=== PATIENT | female | born 1980 | race Caucasian/White ===

== ENCOUNTER → 2019-01-28 | Outpatient (CLI) | payer BC ==
[2015-09-12 15:40] VITALS: BMI 25.3
[~2019-01-28] MED LIST: ACET-3143 PO; HYDR2TAB4 PO; IBU600 PO; IBUP800T37 PO; IOPAMIDOL 76% 150 ML INFUS BTL 150 ML ONE; MULT-912 PO; OMEG300C PO; PER PO
--- NOTE | 2019-01-28 17:58 | RADIOLOGY IMAGING REPORT ---
FACILITY: [facility] PATIENT NAME: Concepción Bernardo : 1980 MR: [id number] V: [id number] EXAM DATE: ORDERING PHYSICIAN: DONNA SUNG TECHNOLOGIST: Location: [facility] [place] Patient: Concepción Bernardo : 1980 Visit/Account:[id number] Date of Sevice: 01/28/2019 EXAMINATION: CT abdomen and pelvis with contrast COMPARISON: None. HISTORY: Right lower quadrant abdominal pain. PROCEDURE: Multiplanar contrast enhanced CT of the abdomen and pelvis with 85 mL intravenous Isovue 3 70. One of the following dose optimization techniques was utilized in the performance of this exam: A utomated exposure control; adjustment of the mA and/or kV according to the patient's size; or use of an iterative reconstruction technique. Specific details can be referenced in the facility's radiolo gy CT exam operational policy. FINDINGS: Visualized thorax: No acute findings. Liver: Negative. Gallbladder and biliary system: Negative Spleen: Negative. Pancreas: Negative. Adrenal glands: Negative. Kidneys and bladder: Bilateral punctate nonobstructing nephrolithiasis. No hydronephrosis or definite radiopaque ureteral stone. Urinary bladder is within normal limits. Vessels: Within normal limits. Bowel and mesentery: Stomach, small bowel, and appendix are unremarkable. Small amount of stool in th e colon. No bowel or mesenteric inflammation. Pelvic organs: Left ovary involuting follicle/cyst as well as trace simple appearing pelvic free flui d. Hysterectomy. Lymph nodes: No adenopathy. Free air/free fluid: Trace simple appearing pelvic free fluid which is favored to be physiologic. No other abdominopelvic fluid collection. No pneumoperitoneum. Abdominal wall and osseous structures: Negative. IMPRESSION: 1. No evidence of acute disease in the abdomen or pelvis. 2. Bilateral punctate nonobstructing nephrolithiasis. 3. Findings suggestive of a recently ruptured left ovarian cyst or follicle. Results were discussed with DONNA SUNG at 01/28/2019 5:54 PM. Report Dictated By: Lars Massey MD at 01/28/2019 5:46 PM Report E-Signed By: Lars Massey MD at 01/28/2019 5:55 PM WSN:[id number]
== END ==
LOC: CT 17:02
PROVIDERS: ATTEND Nurse Practitioner Family
DX: N20.0 Calculus of kidney (principal)
CPT/HCPCS: 74177; Q9967

== ENCOUNTER → 2019-01-28 | Outpatient (REF) | payer BC ==
[2015-09-12 15:40] VITALS: BMI 25.3
[~2019-01-28] MED LIST changes: -IOPAMIDOL 76% 150 ML INFUS BTL 150 ML ONE
[2019-01-28 16:21] LABS: PLATELET COUNT, AUTOMATED 305 K/uL (150-450)
== END ==
PROVIDERS: ATTEND Nurse Practitioner Family
DX: R10.9 Unspecified abdominal pain (principal)
CPT/HCPCS: 82040; 82150; 82247; 82310; 82374; 82435; 82565; 82947; 83690; 84075; 84132; 84155; 84295; 84450; 84460; 84520; 85025